=== PATIENT | female | born 1970 | race Two or more races ===

== ENCOUNTER 2018-06-10 07:30 | Day surgery (SDC) | payer OTHER ==
[~2018-06-10 07:30] MED LIST: METAMUCIL PO
[2018-06-10] MEDS ORDERED: NAPROXEN SODIU550 M1 PO (10:38)
== END 2018-06-10 11:50 | disposition home or self-care (01) ==
LOC: CIR.AMB 07:30
DX: N84.0 Polyp of corpus uteri (principal)